=== PATIENT | female | born 1990 | race Caucasian/White ===

== ENCOUNTER → 2016-11-21 | Outpatient (CLI) | payer OTHER ==
[~2016-11-21] MED LIST: GADOBUTROL 10 MMOL/10 ML VIAL ONE; IBUP800T PO; OXYC-302 PO; PREN1TAB56 PO
== END | disposition home or self-care (01) ==
LOC: CFH 10:25
PROVIDERS: ATTEND Surgery
DX: Z80.3 Family history of malignant neoplasm of breast (principal)
CPT/HCPCS: A9585; C8908

== ENCOUNTER → 2017-08-31 | Outpatient (CLI) | payer OTHER ==
[~2017-08-31] MED LIST changes: -GADOBUTROL 10 MMOL/10 ML VIAL ONE; +IBUP-1223 PO; -IBUP800T PO
== END | disposition home or self-care (01) ==
LOC: CVU 07:44
PROVIDERS: ATTEND Internal Medicine Cardiovascular Disease
DX: R06.02 Shortness of breath (principal); I10 Essential (primary) hypertension
CPT/HCPCS: 93306; 93975

== ENCOUNTER → 2018-06-23 | Outpatient (CLI) | payer OTHER ==
[~2018-06-23] MED LIST changes: +RAMI5CAP57 PO; +[UNRECOGNIZED DRUG - OTHER] PO
[2018-06-23 13:45] LABS: BASOPHILS # (AUTO) 0.01 x10^3/uL (0-0.1); BASOPHILS % (AUTO) 0 % (0-1); EOSINOPHILS # (AUTO) 0.09 x10^3/uL (0-0.4); EOSINOPHILS % (AUTO) 1 % (1-7); LYMPHOCYTES # (AUTO) 1.81 x10^3/uL (1-3.4); LYMPHOCYTES % (AUTO) 28 % (22-44); MD NO; MEAN CORPUSCULAR HEMOGLOBIN 31.8 pg (27.0-34.8); MEAN CORPUSCULAR HGB CONC 34.2 g/dL (32.4-35.8); MEAN CORPUSCULAR VOLUME 93.1 fL (80-100); MEAN PLATELET VOLUME 8.4 fL (7.4-10.4); MONOCYTES # (AUTO) 0.58 x10^3/uL (0.2-0.8); MONOCYTES % (AUTO) 9 % (2-9); NEUTROPHILS # (AUTO) 3.96 x10^3/uL (1.8-6.8); NEUTROPHILS % (AUTO) 61 % (42-75); PLATELET COUNT 237 x10^3/uL (130-400); RED BLOOD COUNT 4.82 x10^6/uL (3.82-5.3); RED CELL DISTRIBUTION WIDTH 12.4 % (9.6-15.2)
[2018-06-23 13:55] LABS: ALANINE AMINOTRANSFERASE 107 U/L (12-78); ALBUMIN 3.8 g/dL (3.4-5.0); ANION GAP 6 mmol/L (5-15); CALCIUM 8.8 mg/dL (8.5-10.1); CHLORIDE 107 mmol/L (98-107)
[2018-06-23 13:58] LABS: ALKALINE PHOSPHATASE 66 U/L (45-117); BILIRUBIN,TOTAL 0.7 mg/dL (0.2-1.0); CREATININE 0.85 mg/dL (0.55-1.02); TOTAL PROTEIN 7.6 g/dL (6.4-8.2)
[2018-06-23 14:15] LABS: MICROSCOPIC NOT IND
[2018-06-23 14:22] LABS: CULTURE INDICATED? NO
== END | disposition home or self-care (01) ==
LOC: STAR 12:41
PROVIDERS: ATTEND Obstetrics & Gynecology
DX: Z01.818 Encounter for other preprocedural examination (principal); Z15.01 Genetic susceptibility to malignant neoplasm of breast; Z90.710 Acquired absence of both cervix and uterus
CPT/HCPCS: 36415; 80053; 81003; 85025; 86304

== ENCOUNTER 2018-06-30 05:29 | Inpatient (IN) | payer OTHER ==
[~2018-06-30] VITALS: Ht 152.4 cm; Wt 68.0 kg
[2018-06-30] MEDS ORDERED: LACTATED RINGERS 1,000 ML IV SCH (06:18)
[2018-06-30 06:25] LABS: HCG UR SG 1.018 (1.003-1.030)
[2018-06-30] MEDS ORDERED: MIDAZOLAM 1 MG/ML, 2ML ONE (06:37)
[2018-06-30] MEDS ORDERED: ONDANSETRON 2MG/ML, 2ML ONE (06:37)
[2018-06-30] MEDS ORDERED: PROPOFOL 10 MG/ML, 20ML ONE (06:37)
[2018-06-30] MEDS ORDERED: FENTANYL PF 250 MCG/5ML ONE (06:37)
[2018-06-30] MEDS ORDERED: ROCURONIUM 10MG/ML,5ML ONE (06:37)
[2018-06-30] MEDS ORDERED: GLYCOPYRROLATE 0.2MG/1ML, 5ML ONE (06:37)
[2018-06-30] MEDS ORDERED: CEFAZOLIN 1,000 MG ONE (06:37)
[2018-06-30] MEDS ORDERED: DEXAMETHASONE 4 MG/ML, 1ML ONE (06:37)
[2018-06-30] MEDS ORDERED: NEOSTIGMINE 1 MG/ML, 10ML ONE (06:37)
[2018-06-30 06:42] VITALS: BP 132/85
[2018-06-30] MEDS ORDERED: GABAPENTIN 300 MG CAPSULE PO ONE (07:00)
[2018-06-30] MEDS ORDERED: SCOPOLAMINE PATCH, 1.5MG PATCH.TD72 TD ONE (07:00)
[2018-06-30] MEDS ORDERED: ACETAMINOPHEN 500 MG TABLET PO ONE (07:00)
[2018-06-30] MEDS ORDERED: BUPIVACAINE 0.25% ONE (07:09)
[2018-06-30] MEDS ORDERED: EPINEPHRINE 1 MG/ML, 1ML ONE (07:09)
[2018-06-30] MEDS ORDERED: FLUORESCEIN SODIUM 500 MG/5 ML ONE (07:09)
[2018-06-30] MEDS ORDERED: SODIUM CHLORIDE 0.9% 100 ML ONE (07:09)
[2018-06-30] MEDS ORDERED: BUPIVACAINE/PF-EPI 0.5% 1:200K ONE (07:10)
[2018-06-30] MEDS ORDERED: VASOPRESSIN 20 UNIT/ML, 1ML ONE (07:10)
[2018-06-30] MEDS ORDERED: PROMETHAZINE 12.5 MG SUPP PR PRN (07:30)
[2018-06-30] MEDS ORDERED: ONDANSETRON ODT 8 MG PO PRN (07:30)
[2018-06-30] MEDS ORDERED: PROMETHAZINE 25 MG SUPP PR PRN (07:30)
[2018-06-30] MEDS ORDERED: FENTANYL PF 100 MCG/2ML IV PRN (07:30)
[2018-06-30] MEDS ORDERED: hydrALAzine 20 MG/ML, 1ML IV PRN (07:30)
[2018-06-30] MEDS ORDERED: PROMETHAZINE 25 MG/ML, 1ML IM PRN ×2 (07:30)
[2018-06-30] MEDS ORDERED: PROMETHAZINE 25 MG/ML, 1ML IV PRN (07:30)
[2018-06-30] MEDS ORDERED: ONDANSETRON 2MG/ML, 2ML IV PRN (07:30)
[2018-06-30] MEDS ORDERED: HALOPERIDOL 5 MG/ML IV PRN (07:30)
[2018-06-30] MEDS ORDERED: MEPERIDINE/PF 25MG/0.5ML IVPush PRN (07:30)
[2018-06-30] MEDS ORDERED: MORPHINE SULFATE 4 MG/ML, 1ML IVPush PRN (07:30)
[2018-06-30] MEDS ORDERED: LABETALOL 5MG/ML, 20ML IV PRN (07:30)
[2018-06-30] MEDS ORDERED: OXYcodone 5 MG/5 ML ORAL.SOL UDC PO PRN (07:30)
[2018-06-30] MEDS ORDERED: HYDROmorphone 2 MG/ML, 1ML IVPush PRN (07:30)
[2018-06-30] MEDS ORDERED: KETOROLAC 30 MG/1 ML ONE (07:49)
[2018-06-30] MEDS ORDERED: INDIGO CARMINE 0.8%, 5ML ONE (08:47)
[2018-06-30] MEDS ORDERED: FENTANYL PF 100 MCG/2ML ONE ×3 (08:57→10:25)
[2018-06-30] MEDS ORDERED: ONDANSETRON 2MG/ML, 2ML IVPush PRN (10:00)
[2018-06-30] MEDS ORDERED: MEPERIDINE/PF 50 MG/ML IM PRN (10:00)
[2018-06-30] MEDS ORDERED: KETOROLAC 30 MG/1 ML IVPush PRN (10:00)
[2018-06-30] MEDS ORDERED: OPIUM/BELLADONNA SUPP.RECT 16.2-30 MG ONE (10:06)
[2018-06-30] MEDS ORDERED: OXYcodone 5 MG/5 ML ORAL.SOL UDC ONE (10:15)
[2018-06-30] MEDS ORDERED: OPIUM/BELLADONNA SUPP.RECT 16.2-30 MG PR ONE (10:30)
[2018-06-30 11:10] VITALS: BP 147/88
[2018-06-30] MEDS: OXYcodone/APAP 5/325MG TABLET PO PRN (11:57)
[2018-06-30] MEDS: LACTATED RINGERS 1,000 ML IV SCH ×2 (12:20→17:48)
[2018-06-30 13:51] VITALS: BP 142/82
[2018-06-30 16:00] VITALS: BP 109/72
[2018-06-30] MEDS: SIMETHICONE 80 MG CHEW TAB PO SCH ×2 (16:21→20:23)
[2018-06-30] MEDS ORDERED: OPIUM/BELLADONNA SUPP.RECT 16.2-30 MG PR PRN (17:00)
[2018-06-30 20:00] VITALS: BP 121/76
[2018-06-30] MEDS: ACETAMINOPHEN 325 MG TABLET PO PRN (20:22)
[2018-06-30] MEDS: DOCUSATE 100 MG CAPSULE PO SCH (20:23)
[2018-07-01] VITALS: BP 117/69
[2018-07-01] MEDS: LACTATED RINGERS 1,000 ML IV SCH ×2 (01:48→08:31)
[2018-07-01 04:00] VITALS: BP 140/100
[2018-07-01] MEDS: OXYcodone/APAP 5/325MG TABLET PO PRN (05:27)
[2018-07-01 05:52] LABS: BASOPHILS # (AUTO) 0.02 x10^3/uL (0-0.1); BASOPHILS % (AUTO) 0 % (0-1); EOSINOPHILS # (AUTO) 0.19 x10^3/uL (0-0.4); EOSINOPHILS % (AUTO) 2 % (1-7); LYMPHOCYTES # (AUTO) 1.78 x10^3/uL (1-3.4); LYMPHOCYTES % (AUTO) 15 % (22-44); MD NO; MEAN CORPUSCULAR HEMOGLOBIN 31.9 pg (27.0-34.8); MEAN CORPUSCULAR HGB CONC 34.3 g/dL (32.4-35.8); MEAN CORPUSCULAR VOLUME 93.1 fL (80-100); MEAN PLATELET VOLUME 9.5 fL (7.4-10.4); MONOCYTES # (AUTO) 1.11 x10^3/uL (0.2-0.8); MONOCYTES % (AUTO) 9 % (2-9); NEUTROPHILS % (AUTO) 75 % (42-75); PLATELET COUNT 207 x10^3/uL (130-400); RED BLOOD COUNT 4.01 x10^6/uL (3.82-5.3)
[2018-07-01 06:01] LABS: CHLORIDE 108 mmol/L (98-107)
[2018-07-01 06:23] LABS: ALANINE AMINOTRANSFERASE 45 U/L (12-78); ALBUMIN 2.8 g/dL (3.4-5.0); ALKALINE PHOSPHATASE 42 U/L (45-117); ANION GAP 12 mmol/L (5-15); BILIRUBIN,TOTAL 0.8 mg/dL (0.2-1.0); CALCIUM 8.3 mg/dL (8.5-10.1); CREATININE 0.73 mg/dL (0.55-1.02); TOTAL PROTEIN 5.4 g/dL (6.4-8.2)
[2018-07-01] MEDS: DOCUSATE 100 MG CAPSULE PO SCH (08:30)
[2018-07-01 08:31] VITALS: BP 133/80
[2018-07-01] MEDS: SIMETHICONE 80 MG CHEW TAB PO SCH (08:31)
[2018-07-01] MEDS ORDERED: NITROFURANTOIN (MACROBID) 100 MG CAPSULE PO ONE (09:00)
[2018-07-01] MEDS ORDERED: ESTRADIOL 1 MG TABLET PO SCH (09:00)
[2018-07-01] MEDS: ACETAMINOPHEN 325 MG TABLET PO PRN (09:25)
[2018-07-01] MEDS ORDERED: OXYC-302 PO (12:51)
[2018-07-01] MEDS ORDERED: DOCU-131 PO (12:51)
[2018-07-01] MEDS ORDERED: SIME80TA16 PO (12:54)
[2018-07-01] MEDS ORDERED: ESTR1TAB15 PO (12:54)
[2018-07-01] MEDS ORDERED: OPIU1SUP2 PR (12:54)
[2018-07-01] MEDS ORDERED: NITR100C PO (12:54)
[2018-07-01] MEDS ORDERED: IBUP-1222 PO (12:54)
[2018-07-01 13:02] VITALS: BP 153/90
== END 2018-07-01 13:26 | disposition home or self-care (01) | DRG 743 ==
LOC: OUT 05:29 → ORIP 09:48 → 4NOR 11:04 → DCLOUNGE 07-01 13:10
PROVIDERS: ADMIT Obstetrics & Gynecology; ATTEND Obstetrics & Gynecology
PROC: 0UT2FZZ Resection of Bilateral Ovaries, Via Natural or Artificial Opening With Percutaneous Endoscopic Assistance (ICD-10-PCS; 2018-06-30)
PROC: 0UT7FZZ Resection of Bilateral Fallopian Tubes, Via Natural or Artificial Opening With Percutaneous Endoscopic Assistance (ICD-10-PCS; 2018-06-30)
PROC: 0TJB8ZZ Inspection of Bladder, Via Natural or Artificial Opening Endoscopic (ICD-10-PCS; 2018-06-30)
PROC: 0UT9FZZ Resection of Uterus, Via Natural or Artificial Opening With Percutaneous Endoscopic Assistance (ICD-10-PCS; principal; 2018-06-30 07:30)
DX: N83.8 Other noninflammatory disorders of ovary, fallopian tube and broad ligament (principal); N32.89 Other specified disorders of bladder; K66.0 Peritoneal adhesions (postprocedural) (postinfection); I10 Essential (primary) hypertension; Z15.02 Genetic susceptibility to malignant neoplasm of ovary; Z15.01 Genetic susceptibility to malignant neoplasm of breast
CPT/HCPCS: 36415; J3490; 80053; 81025; 85025; 86850; 86900; 88112; 88307; G0378; J0171; J0690; J1100; J1885; J2250; J2405; J2704; J2710; J3010; J7120